=== PATIENT | female | born 1975 ===

== ENCOUNTER 2025-05-27 06:42 | Day surgery (SDC) | payer BC ==
[2025-05-27] MEDS ORDERED: fentaNYL 50 MCG/ML SDV ONE (07:08)
[2025-05-27] MEDS ORDERED: Propofol 200 MG/20 ML SDV ONE (07:08)
[2025-05-27] MEDS: Lactated Ringers 1,000 ML IV SCH (07:33)
== END 2025-05-27 09:25 | disposition home or self-care (01) ==
LOC: JP.SDS 06:42
PROVIDERS: ATTEND Family Medicine
DX: K62.1 Rectal polyp (principal); K63.89 Other specified diseases of intestine; Z88.1 Allergy status to other antibiotic agents; Z88.0 Allergy status to penicillin; Z91.041 Radiographic dye allergy status
CPT/HCPCS: 00811; 45380; 81025; J2704; J3010; J7120